=== PATIENT | male | born 1950 | race Hispanic/Latino ===

== ENCOUNTER 2016-09-23 13:15 | Emergency (ER) | payer OTHER ==
[2016-09-23 13:38] VITALS: TEMP 99.1
--- NOTE | 2016-09-23 13:54 | C.PDOC ---
History Of Present Illness 65 y/o male presents to ED via EMS after being found on a bus unconscious, unresponsive, with pinpoint pupils. Patient was given narcan and regained full consciousness. At this point, patient is awake, alert, and oriented. Notes he felt dizzy prior to experiencing syncopal episode. Denies any other complaints at this time. Review of prior records shows patient had a nearly identical story on 08/21/16 ER visit at [facility]. Pt admits to taking percocet today, pending a substance abuse program "soon." Time Seen by Provider: 09/23/16 13:45 Chief Complaint (Nursing): Substance Abuse History Per: Patient History/Exam Limitations: no limitations Onset/Duration Of Symptoms: Hrs Current Symptoms Are (Timing): Better Associated Symptoms: denies: Suicidal Thoughts, Suicidal Plan Recent travel outside of the [place]: No Additional History Per: EMS Past Medical History Reviewed: Historical Data, Nursing Documentation, Vital Signs Vital Signs: Last Vital Signs Temp 99.1 F 09/23/16 13:26 Pulse 82 09/23/16 14:42 Resp 18 09/23/16 14:42 BP 156/85 H 09/23/16 14:42 Pulse Ox 90 L 09/23/16 15:49 - Medical History PMH: Diabetes, HTN Family History: States: Unknown Family Hx - Social History Hx Alcohol Use: No Hx Substance Use: No ((heroin) as hx on [facility]. pt denies) - Immunization History Hx Tetanus Toxoid Vaccination: No Hx Influenza Vaccination: No Hx Pneumococcal Vaccination: No Review Of Systems Except As Marked, All Systems Reviewed And Found Negative. Constitutional: Negative for: Fever, Chills Cardiovascular: Negative for: Chest Pain Respiratory: Negative for: Cough, Shortness of Breath, Wheezing Gastrointestinal: Negative for: Nausea, Vomiting, Abdominal Pain Skin: Negative for: Rash Neurological: Negative for: Headache, Dizziness Physical Exam - Physical Exam Appears: Non-toxic, No Acute Distress, Other (hot potatoe voice, small orophyanx , morbidly obese) Skin: Normal Color, Warm, Dry Head: Atraumatic, Normacephalic Oral Mucosa: Moist Chest: Symmetrical Cardiovascular: Rhythm Regular Respiratory: Normal Breath Sounds, No Rales, No Rhonchi, No Wheezing Gastrointestinal/Abdominal: Soft, No Tenderness, No Guarding, No Rebound Back: Normal Inspection Extremity: Normal ROM, Capillary Refill (< 2 sec. ) Neurological/Psych: Oriented x3, Normal Speech, Normal Cognition ED Course And Treatment - Laboratory Results Result Diagrams: 09/23/16 14:01 09/23/16 14:40 Lab Interpretation: Abnormal (u-tox + opiates) ECG: Interpreted By Me ECG Rhythm: Sinus Rhythm ECG Interpretation: Normal Rate From EC O2 Sat by Pulse Oximetry: 90 (RA) Pulse Ox Interpretation: Normal - Radiology CXR: Interpreted by Me CXR Interpretation: Yes: No Acute Disease Progress Note: EKG, CXR, LABS ORDERED. Reevaluation Time: 15:48 Reassessment Condition: Improved (awake, aware, ate lunch, feels fine) Medical Decision Making Medical Decision Making: Discussed with Dr. Sharp who notes the patient is no longer under his service. 1545: probable persisten narcotics abuse, h/o same, u-tox + opiates but most recent Perc Rx 06/11 Disposition Doctor Will See Patient In The: Office Counseled Patient/Family Regarding: Studies Performed, Diagnosis - Disposition Referrals: Alcoholics Anonymous [Outside] [facility] [Outside] [facility] [Outside] Disposition: HOME/ ROUTINE Disposition Time: 15:49 Condition: GOOD Additional Instructions: seek substance abuse programs. Stop narcotics abuse, there is high riks for overdose This is your 2nd overdose presentation in the past 30 days. Instructions: Narcotic Abuse (ED) - Clinical Impression Clinical Impression: Narcotic overdose - Scribe Statement The provider has reviewed the documentation as recorded by the Jean Gay Provider Attestation: All medical record entries made by the Jean were at my direction and personally dictated by me. I have reviewed the chart and agree that the record accurately reflects my personal performance of the history, physical exam, medical decision making, and the department course for this patient. I have also personally directed, reviewed, and agree with the discharge instructions and disposition.
[2016-09-23 14:12] LABS: BASO # 0.1 K/uL (0.0-0.2); BASO % 0.3 % (0.0-2.0); EOS % 0.3 % (0.0-4.0); HEMATOCRIT 44.9 % (35.0-51.0); LYMPH # 0.7 K/uL (1.0-4.3); LYMPH % 4.1 % (20.0-40.0); MEAN CELL VOLUME 88.4 fL (80.0-94.0); MEAN CORPUSCULAR HEMOGLOBIN 28.1 pg (27.0-31.0); MEAN CORPUSCULAR HGB CONC 31.9 g/dL (33.0-37.0); MEAN PLATELET VOLUME 9.7 fL (7.2-11.7); MONO # 1.1 K/uL (0.0-0.8); MONO % 6.5 % (0.0-10.0); PLATELET COUNT 167 K/uL (130-400); WHITE BLOOD COUNT 17.5 K/uL (4.8-10.8)
[2016-09-23 14:33] LABS: RBC URINE 2 /hpf (0-3); URINE BILIRUBIN NEGATIVE (NEGATIVE); URINE BLOOD NEGATIVE (NEGATIVE); URINE COLOR Yellow (YELLOW); URINE GLUCOSE (UA) 3+ mg/dL (Normal); URINE KETONE NEGATIVE (NEGATIVE); URINE LEUKOCYTE ESTERASE NEG Leu/uL (Negative); URINE PROTEIN 1+ mg/dL (NEGATIVE); URINE UROBILINOGEN NORMAL mg/dL (0.2-1.0); WBC URINE 1 /hpf (0-5)
[2016-09-23 14:43] VITALS: BP 156/85
[2016-09-23 15:06] LABS: BASOPHIL 1 % (0-2); MYELOCYTE 1 % (0-0); NEUTROPHIL 85 % (50-75); TOTAL CELLS COUNTED 100
[2016-09-23 15:20] LABS: CHLORIDE 105 mmol/L (98-107); SODIUM 143 mmol/L (132-148)
[2016-09-23 15:22] LABS: ALKALINE PHOSPHATASE 99 U/L (38-126); AST/SGOT 32 U/L (17-59); BILIRUBIN,TOTAL 0.7 mg/dL (0.2-1.3); CARBON DIOXIDE 26 mmol/L (22-30); GFR AFRICAN-AMERICAN > 60
[2016-09-23 15:23] LABS: ALCOHOL SERUM < 10 mg/dl (0-10); ALT/SGPT 28 U/L (21-72); BLOOD UREA NITROGEN 24 mg/dL (9-20); CALCIUM 9.5 mg/dl (8.6-10.4); GLUCOSE,RANDOM 158 mg/dL (75-110)
--- NOTE | 2016-09-23 15:31 | RAD ---
HISTORY: Detox/Psy COMPARISON: None available. TECHNIQUE: Chest, one view. FINDINGS: Examination limited by habitus. LUNGS: No focal consolidation. Please note that chest x-ray has limited sensitivity for the detection of pulmonary masses. PLEURA: No significant pleural effusion identified. No definite pneumothorax . CARDIOVASCULAR: Cardiomegaly. OSSEOUS STRUCTURES: No acute osseous abnormality identified. VISUALIZED UPPER ABDOMEN: Unremarkable. OTHER FINDINGS: None. IMPRESSION: Cardiomegaly.
[2016-09-23 15:49] VITALS: O2SAT 90
[2016-09-23 16:11] VITALS: PULSE 79; RESP 15
--- NOTE | 2016-09-27 11:42 | CARD ---
APPROVED REPORT EKG Measurement Heart [id number] <Conclusion> Normal sinus rhythm Right bundle branch block T wave abnormality, consider inferior ischemia Abnormal ECG
== END 2016-09-23 16:10 | disposition home or self-care (01) ==
LOC: C.ER 13:15
DX: T40.601A Poisoning by unspecified narcotics, accidental (unintentional), initial encounter (principal); R42 Dizziness and giddiness; R55 Syncope and collapse; Y92.811 Bus as the place of occurrence of the external cause